=== PATIENT | male | born 1990 | race Caucasian/White ===

== ENCOUNTER 2022-10-07 10:09 | Outpatient (CLI) | payer BC, SELFPAY ==
--- NOTE | ~2022-10-07 | XR_ITS ---
Left Shoulder Technique: AP and scapular Y views were obtained. Clinical History: Injury Findings: No fracture or dislocation is seen. Osseous alignment is anatomic. The glenohumeral and acr omioclavicular joint spaces are preserved. Soft tissues are unremarkable. Impression: Unremarkable left shoulder radiographs. Reviewed, dictated and finalized at [facility]. Impression: Unremarkable left shoulder radiographs.
--- NOTE | ~2022-10-07 | XR_ITS ---
AP nonweightbearing and weightbearing views of the bilateral AC joints were performed. CLINICAL HISTORY: Injury FINDINGS: No fracture or dislocation seen. Osseous alignment is anatomic. No evidence for AC joint se paration injury. AC joints are symmetric bilaterally on both weightbearing and nonweightbearing views . Soft tissues are unremarkable. IMPRESSION: Unremarkable exam. Reviewed, dictated and finalized at location . IMPRESSION: Unremarkable exam.
== END 2022-10-07 10:10 | disposition home or self-care (01) ==
PROVIDERS: PCP Family Medicine; Visit Provider Family Medicine
DX: S49.90XA Unspecified injury of shoulder and upper arm, unspecified arm, initial encounter (principal); T14.90XA Injury, unspecified, initial encounter
CPT/HCPCS: 73030; 73050

== ENCOUNTER 2023-07-13 16:46 | Outpatient (CLI) | payer BC, SELFPAY ==
[2023-07-13 20:17] LABS: Influenza A QL RT-PCR Positive (Negative); Influenza B QL RT-PCR Negative (Negative); RSV RNA, RT-PCR Negative (Negative); SARS-CoV-2 RNA PCR Negative (Negative)
== END 2023-07-13 16:47 | disposition home or self-care (01) ==
LOC: ANHLAB 16:48
PROVIDERS: PCP Family Medicine; Visit Provider Family Medicine
DX: J06.9 Acute upper respiratory infection, unspecified (principal); Z20.822 Contact with and (suspected) exposure to COVID-19
CPT/HCPCS: 87637

== ENCOUNTER 2024-06-18 10:33 | Emergency (ER) | payer BC, SELFPAY ==
[2024-06-18 12:34] VITALS: BP 111/79; PULSE 68; RESP 16; TEMP 36.6; O2SAT 99
--- NOTE | 2024-06-18 13:31 | ED.URI ---
HPI - URI/Sore Throat General Chief Complaint: Upper Respiratory Infection Stated Complaint: cough, headache, body chills, weakness Time Seen by Provider: 06/18/24 13:21 Source: patient and RN notes reviewed Mode of arrival: ambulatory Limitations: no limitations History of Present Illness HPI Narrative: Patient presents today with a 3 day history of fatigue, sore throat, cough, headache, chills, rhinorrhea, nasal congestion. Denies fever or shortness of breath. He has tried some aspirin and currently rates his pain 2/10. Denies history of asthma or COPD. He is a nonsmoker. Related Data Home Medications ?Medication ?Instructions ?Recorded ?Confirmed ?Last Taken ?Type ascorbate calcium (vitamin C) 500 500 mg PO DAILY 12/07/20 10/11/22 Unknown History mg tablet fexofenadine 60 mg tablet (Jennifer 60 mg PO Q12H 12/07/20 10/11/22 Unknown History Allergy) multivitamin 1 tablet PO DAILY 12/07/20 10/11/22 Unknown History omega-3 fatty acids 1,000 mg 1,000 mg PO DAILY 12/07/20 10/11/22 Unknown History capsule (Fish Oil Concentrate) Allergies Allergy/AdvReac Type Severity Reaction Status Date / Time No Known Allergies Allergy Verified 06/18/24 12:34 Review of Systems Review of Systems: CONSTITUTIONAL: Denies body aches, fever, or sweats.+ chills, fatigue EYES: Denies visual changes, redness, or discharge. ENT: Denies otalgia.+ rhinorrhea, congestion, sore throat CARDIOVASCULAR: Denies chest pain, palpitations, or edema. RESPIRATORY: Denies dyspnea.+ cough GASTROINTESTINAL: Denies abdominal pain, nausea, vomiting, or diarrhea. GENITOURINARY: Denies dysuria or hematuria. SKIN: Denies rash, itching, or wounds. MUSCULOSKELETAL: Denies back pain, joint pain, or myalgia. NEUROLOGIC: Denies numbness, tingling, or weakness.+ headache PSYCH: Denies depression or anxiety. [facility] Social History Social History Social History: Smoking status: Never smoker Second hand tobacco smoke exposure: No Alcohol intake: current Drinks per week: 2 Substance use: never Substance use type: does not use Lack of Transportation: No Lack of Food: Never True Current Housing: I Have Housing Concerned About Future Housing: No Difficulty Paying Gas/Electric Bills: No Difficulty Paying for Meds: No Currently Unemployed: No Education: Decline to Answer Difficulty w/ Childcare or Family Care: No Living arrangements: with family Occupation/Education: occupation Gender identity (if verbalized by the patient): Male Sexual Orientation (if Verbalized by the Patient): Straight or Heterosexual Comments At time of signature, I have reviewed and agree with nursing past medical, surgical, social and family history unless otherwise noted. Please see nursing chart for further information. There is no relevant family history pertinent to the presenting complaint Exam Narrative: GENERAL: Well-appearing, well-nourished, and in no acute distress. HEAD: Normocephalic, atraumatic. EYES: EOMI. No redness or drainage. Conjunctivae normal. ENT: Mucous membranes pink and moist. Nares mildly congested. No rhinorrhea. TMs normal bilaterally. Throat normal. Uvula midline. NECK: Normal AROM. Supple. No lymphadenopathy. CHEST: No respiratory distress. Clear to auscultation. HEART: Regular rate and rhythm. No murmur appreciated. EXTREMITIES: Normal range of motion. No edema. SKIN: Warm, dry, no rash. Capillary refill normal. Normal skin turgor. NEURO: No focal deficits. Alert and oriented x3. Gait steady. PSYCH: Normal affect. No signs of depression or anxiety. Course Course Level of Care: Express Care Visit Vital Signs Vital signs: Vital Signs Temperature 98 F 06/18/24 12:34 Pulse Rate 68 06/18/24 12:34 Respiratory Rate 16 06/18/24 12:34 Blood Pressure 111/79 06/18/24 12:34 Pulse Oximetry 99 06/18/24 12:34 Temperature 98 F 06/18/24 12:34 Pulse Rate 68 06/18/24 12:34 Respiratory Rate 16 06/18/24 12:34 Blood Pressure 111/79 06/18/24 12:34 Pulse Oximetry 99 06/18/24 12:34 Reviewed MDM - URI/Sore Throat MDM Narrative Medical decision making narrative: COVID-19 positive. Patient declines prescription for Paxlovid. Discussed [id number] medication use and duration of illness. Anticipatory guidance given. ED precautions given. Differential Diagnosis Differential diagnosis: Likely upper respiratory infection, viral infection, influenza and other (COVID-19) Lab Data Attestation: I reviewed the patient's lab results. Lab results narrative: Influenza negative, COVID-19 positive Critical Care Time Critical Care Time Critical Care Time: No Discharge Plan Discharge Clinical Impression: COVID-19 Patient Disposition: Home, Self-Care Condition: Stable Instructions: COVID-19 (Coronavirus Disease 2019) (ED) Additional Instructions: You have tested positive for COVID-19 today. Continue vytx-vor-[id number] medication as needed for your symptoms such as Mucinex for your cough, Tylenol or ibuprofen for aches and pains. Follow-up with your PCP in 1 week if symptoms are not improving. Go to the ER immediately if symptoms worsen to include shortness of breath, chest pain. Patient Language: Togolese Prescriptions: No Action ascorbate calcium (vitamin C) 500 mg tablet 500 mg PO DAILY multivitamin Tablet 1 tablet PO DAILY omega-3 fatty acids [Fish Oil Concentrate] 1,000 mg capsule 1,000 mg PO DAILY fexofenadine [Jennifer Allergy] 60 mg tablet 60 mg PO Q12H Follow-up/Referrals: Hanna Machado MD [Primary Care Provider] - Time of Disposition: 13:34
[2024-06-18 13:32] LABS: EDCOVIDSCREEN Positive (Negative); EDINFLUASCREEN Negative (Negative); EDINFLUBSCREEN Negative (Negative)
== END 2024-06-18 13:36 | disposition home or self-care (01) ==
PROVIDERS: Emergency Provider Nurse Practitioner; PCP Family Medicine
DX: U07.1 COVID-19 (principal)
CPT/HCPCS: 87426; 87804; 99212; G0463

== ENCOUNTER 2024-10-27 12:29 | Emergency (ER) | payer BC, SELFPAY ==
[2024-10-27 12:44] VITALS: BP 106/78; PULSE 101; RESP 16; TEMP 37.7; O2SAT 99
[2024-10-27 12:57] LABS: EDCOVIDSCREEN Negative (Negative); EDINFLUASCREEN Negative (Negative); EDINFLUBSCREEN Negative (Negative); EDSTREPNEGPOS1 Negative (Negative)
--- NOTE | 2024-10-27 13:26 | ED_ITS ---
HPI - General Adult General Chief complaint: Upper Respiratory Infection Stated complaint: Dizzy/Chills/Nausea Source: patient Mode of arrival: ambulatory Limitations: no limitations History of Present Illness HPI narrative: Patient presents for evaluation of sick symptoms. Symptoms include fever, chills, sore throat, generalized body aches, weakness, dizziness, and nausea. Symptom onset yesterday. No recent sick contacts to his knowledge. Tried taking NyQuil for symptoms. He does not smoke. Related Data Home Medications ?Medication ?Instructions ?Recorded ?Confirmed ?Last Taken ?Type ascorbate calcium (vitamin C) 500 500 mg PO DAILY 12/07/20 10/11/22 Unknown History mg tablet fexofenadine 60 mg tablet (Jennifer 60 mg PO Q12H 12/07/20 10/11/22 Unknown History Allergy) multivitamin 1 tablet PO DAILY 12/07/20 10/11/22 Unknown History omega-3 fatty acids 1,000 mg 1,000 mg PO DAILY 12/07/20 10/11/22 Unknown History capsule (Fish Oil Concentrate) Allergies Allergy/AdvReac Type Severity Reaction Status Date / Time No Known Allergies Allergy Verified 10/27/24 12:37 Review of Systems Review of Systems: CONSTITUTIONAL: Reports fever, chills, weakness. EYES: Denies visual changes, redness, or discharge. ENT: Reports sore throat. Denies rhinorrhea, congestion,or otalgia. CARDIOVASCULAR: Denies chest pain, palpitations, or edema. RESPIRATORY: Denies cough or dyspnea. GASTROINTESTINAL: Reports nausea.Denies abdominal pain, vomiting, or diarrhea. GENITOURINARY: Denies dysuria or hematuria. SKIN: Denies rash or itching. MUSCULOSKELETAL: Reports generalized body aches NEUROLOGIC: Reports dizziness. Denies headache, numbness, or weakness. PSYCHIATRIC: Denies anxiety or depression. [facility] Past Medical History Medical History No pertinent past medical history Surgical History Surgical History No pertinent past surgical history Family History Family History Mother Family history non-contributory Social History Social History Social History: Smoking status: Never smoker Second hand tobacco smoke exposure: No Alcohol intake: current Drinks per week: 2 Substance use: never Substance use type: does not use Lack of Transportation: No Lack of Food: Never True Current Housing: I Have Housing Concerned About Future Housing: No Difficulty Paying Gas/Electric Bills: No Difficulty Paying for Meds: No Currently Unemployed: No Education: Decline to Answer Difficulty w/ Childcare or Family Care: No Living arrangements: with family Occupation/Education: occupation Gender identity (if verbalized by the patient): Male Sexual Orientation (if Verbalized by the Patient): Straight or Heterosexual Exam Narrative: GENERAL: Well-appearing, well-nourished, and in no acute distress. HEAD: Normocephalic, atraumatic. EYES: PERRLA and EOMI. ENT: Nares clear, no rhinorrhea or epistaxis. Mucous membranes moist. Orophar ynx without tonsillar hypertrophy exudate or other lesions. Bilateral TMs pearly fuller nonbulging NECK: Supple. No adenopathy or masses. No carotid bruits or JVD CHEST: Clear to auscultation. No respiratory distress. No wheezes rales or rhonchi HEART: Regular rate and rhythm. No murmur heard. Normal peripheral pulses. ABDOMEN: Soft, nontender, nondistended, normal active bowel sounds. EXTREMITIES: Normal range of motion. No edema. SKIN: Warm, dry, no rash. NEURO: No focal deficits. Alert and oriented x3. PSYCH: Normal mood and affect. Course Course Emergency Course: this is a 34-year-old male who presented for evaluation of sick symptoms. Strep, COVID, influenza were all negative. Exam is consistent with acute viral syndrome. Increase hydration. Will DC with Zofran. Fpci-bma-[id number] agents for symptom management. Follow up with primary provider. Go to the ER for wo rsening symptoms. Patient in agreement with plan of care. Level of Care: Express Care Visit Vital Signs Vital signs: Vital Signs Temperature 37.7 C H 10/27/24 12:44 Pulse Rate 101 H 10/27/24 12:44 Respiratory Rate 16 10/27/24 12:44 Blood Pressure 106/78 10/27/24 12:44 Pulse Oximetry 99 10/27/24 12:44 Temperature 37.7 C H 10/27/24 12:44 Pulse Rate 101 H 10/27/24 12:44 Respiratory Rate 16 10/27/24 12:44 Blood Pressure 106/78 10/27/24 12:44 Pulse Oximetry 99 10/27/24 12:44 Medical Decision Making Vital Signs Vital Signs: Vital Signs Temperature 37.7 C H 10/27/24 12:44 Pulse Rate 101 H 10/27/24 12:44 Respiratory Rate 16 10/27/24 12:44 Blood Pressure 106/78 10/27/24 12:44 Pulse Oximetry 99 10/27/24 12:44 Temperature 37.7 C H 10/27/24 12:44 Pulse Rate 101 H 10/27/24 12:44 Respiratory Rate 16 10/27/24 12:44 Blood Pressure 106/78 10/27/24 12:44 Pulse Oximetry 99 10/27/24 12:44 Lab Data Labs: Lab Results 10/27/24 Range/Units 12:55 POC Influenza A Ag Negative (Negative) POC Influenza B Ag Negative (Negative) POC SARS CoV-2 Ag Negative (Negative) POC Grp A Strep Screen Negative (Negative) Discharge Plan Discharge Clinical Impression: Acute viral syndrome Patient Disposition: Home Condition: Stable Instructions: Antibiotic Form, Viral Syndrome (ED) Additional Instructions: STAY WELL HYDRATED GET PLENTY OF REST CEPACOL LOZENGES SHOULD HELP YOUR SORE THROAT IBUPROFEN AND TYLENOL SHOULD HELP WITH FEVER, CHILLS AND GENERALIZED BODY ACHES Patient Language: Malian Prescriptions: New ondansetron 4 mg tablet,disintegrating 4 mg PO Q6H PRN (Reason: nausea and vomiting) Qty: 15 0RF No Action ascorbate calcium (vitamin C) 500 mg tablet 500 mg PO DAILY multivitamin Tablet 1 tablet PO DAILY omega-3 fatty acids [Fish Oil Concentrate] 1,000 mg capsule 1,000 mg PO DAILY fexofenadine [Jennifer Allergy] 60 mg tablet 60 mg PO Q12H Follow-up/Referrals: Vidhi Santiago DO [Physician] - Time of Disposition: 12:58
== END 2024-10-27 13:02 | disposition home or self-care (01) ==
PROVIDERS: Emergency Provider Nurse Practitioner
DX: B34.9 Viral infection, unspecified (principal); Z20.822 Contact with and (suspected) exposure to COVID-19
CPT/HCPCS: 87081; 87426; 87804; 87880; 99213; G0463